=== PATIENT | female | born 1960 | race Two or more races ===

== ENCOUNTER → 2019-12-01 | Outpatient (CLI) | payer OTHER ==
[~2019-12-01] MED LIST: DITROPAN XL5 MG PO; METFORMIN HCL500 M2 PO; RESTORIL30 M1 PO; WELLBUTRIN SR150 MG PO; [UNRECOGNIZED DRUG - OTHER] PO; [UNRECOGNIZED DRUG - OTHER] PO
== END | disposition home or self-care (01) ==
LOC: EKG 06:00 → ADM 07:15 → EDSTATUS 12-07 07:15 → CIR.AMB 12-07 07:15 → ADM 12-07 07:15
DX: Z01.810 Encounter for preprocedural cardiovascular examination (principal)

== ENCOUNTER 2020-11-28 05:37 | Day surgery (SDC) | payer OTHER ==
[~2020-11-28 05:37] MED LIST changes: +ANASTROZOLE1 MG PO; +FORTAMET500 MG PO; +OXYBUTYNIN CHLOR5 MG PO; +[UNRECOGNIZED DRUG - OTHER] PO
== END 2020-11-28 16:50 | disposition home or self-care (01) ==
LOC: CIR.AMB 05:37
PROVIDERS: ATTEND Obstetrics & Gynecology
DX: N84.0 Polyp of corpus uteri (principal); Z20.822 Contact with and (suspected) exposure to COVID-19